=== PATIENT | female | born 2000 | race Caucasian/White ===

== ENCOUNTER 2021-11-29 12:39 | Outpatient (CLI) | payer OTHER | END 2021-11-29 13:50 | disposition home or self-care (01) | LOC: NST 12:39 | PROVIDERS: ATTEND Obstetrics & Gynecology Maternal & Fetal Medicine | DX: Z34.82 Encounter for supervision of other normal pregnancy, second trimester (principal) ==

== ENCOUNTER 2022-02-08 14:00 | Inpatient (IN) | payer OTHER ==
[~2022-02-08] VITALS: Ht 162.6 cm; Wt 88.0 kg
== END 2022-02-22 12:27 | disposition home or self-care (01) | DRG 807 ==
LOC: SURG-SUITE 02-20 02:31 → LDR 02-20 02:31 → SURG-SUITE 02-20 13:17 → LDR 02-21 14:00 → SURG-SUITE 02-22 12:27
PROVIDERS: ADMIT Obstetrics & Gynecology Maternal & Fetal Medicine; ATTEND Obstetrics & Gynecology Maternal & Fetal Medicine
PROC: 10E0XZZ Delivery of Products of Conception, External Approach (ICD-10-PCS; principal; 2022-02-20)
PROC: 0UQG7ZZ Repair Vagina, Via Natural or Artificial Opening (ICD-10-PCS; 2022-02-20)
PROC: 4A1HXCZ Monitoring of Products of Conception, Cardiac Rate, External Approach (ICD-10-PCS; 2022-02-20)
DX: O71.4 Obstetric high vaginal laceration alone (principal); Z37.0 Single live birth; Z3A.39 39 weeks gestation of pregnancy; Z20.822 Contact with and (suspected) exposure to COVID-19

== ENCOUNTER 2022-02-19 10:33 | Outpatient (CLI) | payer OTHER | END 2022-02-19 11:00 | disposition home or self-care (01) | LOC: NST 10:33 | PROVIDERS: ATTEND Obstetrics & Gynecology | DX: Z34.83 Encounter for supervision of other normal pregnancy, third trimester (principal) ==

== ENCOUNTER 2025-04-07 19:05 | Inpatient (IN) | payer OTHER ==
[~2025-04-07] VITALS: Ht 162.6 cm; Wt 80.3 kg
[2025-04-07] MEDS ORDERED: RINGERS SOLUTION,LACTATED 1,000 ML IV SCH (19:15)
[2025-04-07] MEDS ORDERED: AMPICILLIN SODIUM 2,000 MG VIAL IV ONE (19:15)
[2025-04-07] MEDS ORDERED: OXYTOCIN 20 UNITS/500ML RL PIGGYBAG IV ONE (19:15)
[2025-04-07 19:33] LABS: BASO % 0.2 % (0.1-1.2); EOS # 0.05 (0.04-0.54); EOS % 0.5 % (0.7-7.0); LYMPH # 1.31 (1.18-3.74); LYMPH % 12.9 % (19.3-53.1); MEAN PLATELET VOLUME 10.20 fl (9.4-12.4); MONO # 1.04 (0.24-0.82); MONO % 10.3 % (4.7-12.5); NEUT # 7.62 (1.56-6.13); NEUT % 75.3 % (34.0-71.1); RED CELL DISTRIBUTION WIDTH 13.0 % (11.6-14.4)
[2025-04-07] MEDS ORDERED: OXYTOCIN 500 ML IV SCH (19:45)
[2025-04-07 19:55] LABS: INR < 0.93
[2025-04-07] MEDS ORDERED: AMPICILLIN SODIUM 1,000 MG VIAL IV SCH (20:00)
[2025-04-07 20:02] LABS: ALT/SGPT 17.0 U/L (12-78); AST/SGOT 16.0 U/L (15-37); BILIRUBIN TOTAL 0.77 mg/dL (0.3-1.2); BUN CREA RATIO 20.0 (7.0-25.0); CREATININE SERUM 0.51 mg/dL (0.55-1.02); GFR 146.93; GLOBULINA 3.7 G/DL (2.4-3.5); GLUCOSE FASTING 84.0 mg/dL (65-100); OSMOLALITY SERUM 276.0 MOSM/KG (275-295)
[2025-04-07] MEDS ORDERED: PRENATABS RX T1 EACH PO (20:19)
[2025-04-07] MEDS ORDERED: FE C PLUS TABL1 EACH PO (20:19)
[2025-04-07 20:35] VITALS: BP 129/77
[2025-04-07] MEDS ORDERED: ERYTHROMYCIN BASE OPHT 1GM EACH TUBE OP ONE (21:27)
[2025-04-07] MEDS ORDERED: OXYTOCIN 20 UNITS/1000ML RL PIGGYBAG IV ONE (21:27)
[2025-04-07] MEDS ORDERED: LIDOCAINE HCL 1% 10ML VIAL ONE ×2 (21:27)
[2025-04-07] MEDS ORDERED: CHLORHEXIDINE GLUCONATE 120 ML BOTTLE TOP ONE (21:27)
[2025-04-07 23:17] VITALS: BP 139/92
[2025-04-07 23:30] VITALS: BP 147/60
[2025-04-07] MEDS ORDERED: CHLORHEXIDINE GLUCONATE 120 ML BOTTLE TP SCH (23:30)
[2025-04-07] MEDS ORDERED: OXYTOCIN 1,000 ML IV SCH (23:30)
[2025-04-08] VITALS: BP 117/61
[2025-04-08] MEDS ORDERED: KETOROLAC TROMETHAMINE 10 MG TABLET PO SCH
[2025-04-08] MEDS ORDERED: OxyCODONE HCL 5 MG TABLET (ROXICODONE) PO SCH
[2025-04-08 00:30] VITALS: BP 131/71
[2025-04-08] MEDS ORDERED: LIDOCAINE HCL 1%/EPINEPHRINE 10 ML VIAL IJ ONE (00:30)
[2025-04-08] MEDS ORDERED: ERYTHROMYCIN BASE OPHT 1GM EACH TUBE OP ONE (00:30)
[2025-04-08 01:47] VITALS: BP 132/79
[2025-04-08] MEDS ORDERED: RINGERS SOLUTION,LACTATED 1,000 ML IV SCH (06:30)
[2025-04-08 08:23] VITALS: BP 130/70
[2025-04-08 13:26] VITALS: BP 138/82
[2025-04-08 16:00] VITALS: BP 128/83
[2025-04-08] MEDS ORDERED: GUAIFENESIN 100 MG/5 ML BLIST.PACK PO SCH (17:00)
[2025-04-09] VITALS: BP 116/72
[2025-04-09 08:38] VITALS: BP 123/85
== END 2025-04-09 15:26 | disposition home or self-care (01) | DRG 807 ==
LOC: OB/GYN 19:05 → LDR 19:05 → OB/GYN 23:59
PROVIDERS: ADMIT Obstetrics & Gynecology Maternal & Fetal Medicine; ATTEND Obstetrics & Gynecology Maternal & Fetal Medicine
PROC: 10E0XZZ Delivery of Products of Conception, External Approach (ICD-10-PCS; principal; 2025-04-07)
PROC: 4A1HXCZ Monitoring of Products of Conception, Cardiac Rate, External Approach (ICD-10-PCS; 2025-04-07)
DX: O99.824 Streptococcus B carrier state complicating childbirth (principal); Z37.0 Single live birth; Z3A.37 37 weeks gestation of pregnancy